=== PATIENT | female | born 1985 | race Caucasian/White ===

== ENCOUNTER 2019-08-21 18:56 | Emergency (ER) | payer OTHER ==
--- NOTE | 2019-08-21 19:11 | UC ---
Lower Extremity/Ankle HPI - HPI Summary HPI Summary: Patient is 34 year old female, who present today to the urgent care with right foot and ankle pain , starting 3 hours [employer]. She reports that she went to stand up from the couch and twisted her R ankle. Pt "heard a pop". Pt reports the lateral aspect as well as the bottom of her foot is painful. Swelling and pain on lasteral ankle and base of 5th metatarsal. She is limping - History of Current Complaint Stated Complaint: RIGHT FOOT INJURY Time Seen by Provider: 08/21/19 19:04 Hx Obtained From: Patient Hx Last Menstrual Period: Jul 29, 2019 ?: No - Allergies/Home Medications Allergies/Adverse Reactions: Allergies Allergy/AdvReac Type Severity Reaction Status Date / Time No Known Allergies Allergy Verified 08/21/19 19:08 PMH/Surg Hx/FS Hx/Imm Hx - Additional Past Medical History Additional PMH: Past Medical History : None Past Surgical History: D&C, tubal, appendectomy Family History : non contributory Social History : Occasional alcohol, daily smoker, no drug use. Previously Healthy: Yes - Surgical History Surgical History: Yes Surgery Procedure, Year, and Place: DN -2012 - Family History Known Family History: Positive: None, Non-Contributory - Social History Alcohol Use: Occasionally Substance Use Type: None Smoking Status (MU): Heavy Every Day Tobacco Smoker Review of Systems All Other Systems Reviewed And Are Negative: Yes Constitutional: Positive: Negative Skin: Positive: Negative Eyes: Positive: Negative ENT: Positive: Negative Respiratory: Positive: Negative Cardiovascular: Positive: Negative Gastrointestinal: Positive: Negative Genitourinary: Positive: Negative Motor: Positive: Negative Neurovascular: Positive: Negative Musculoskeletal: Positive: Arthralgia - Right foot and ankle pain, Edema Neurological: Positive: Negative Psychological: Positive: Negative Is Patient Immunocompromised?: No Physical Exam - Summary Physical Exam Summary: Vital Signs Reviewed: Yes A+Ox3, no distress Eyes: Conjunctiva Clear ENT: Hearing grossly normal neck: supple Respiratory: Positive: No respiratory distress, No accessory muscle use Cardiovascular: skin color reflect adequate perfusion Neurological: Positive: Alert, ambulatory without difficulty Psychological: Positive: Normal Response To Family Skin: Positive: no rash, no ecchymosis Musculoskeletal exam: Gait: antalgic gait Right Ankle/Feet examination: Ankle: Inspection/palpation: No bruising but there is swelling noted on the lateral aspect. There is tenderness to palpation on the ATFL and CFL. There is tenderness to palpation at the distal fibula and the base of 5th metatarsal. Ankle mortise appears intact. ROM: Limited and painful range of motion) Strength: 5-/5 Special tests:Anterior drawer test is negative but painful. Side to side test negative.Talar tilt test(inversion stress) and the eversion stress test negative. Negative Squeeze and External Rotation tests. Heel tap test negative. Feet: Insp/Palp: Tenderness to palpation is noted at the base of the fifth metatarsal Strength: EHL 5/5 blaterally Skin: No scars, rashes, lesions or ecchymosis. 2+ posterior tibial and dorsalis pedis pulse bilaterally. Neuro: Sensation to light touch is intact in the lower extremities bilaterally. Coordination normal. Triage Information Reviewed: Yes Vital Signs Reviewed: Yes Diagnostics - Radiology No standard instances Radiology Interpretation Completed By: ED Physician - X-ray of the right foot: Preliminary read: Mild osteophytes noted, Enthesophyte noted at the Achilles tendon. no acute fracture or dislocation identified . X-ray of the right ankle: No fracture identified Lower Extremity Course/Dx - Course Course Of Treatment: During the visit today, we obtained X-ray of the right foot: Preliminary read : Mild osteophytes noted, Enthesophyte noted at the Achilles tendon. no acute fracture or dislocation identified . X-ray of the right ankle: No fracture identified We discussed the findings- lateral ankle sprain and foot contusion . Plan for cam boot and follow with orthopedics within a week Patient expressed understanding . - Differential Dx/Diagnosis Provider Diagnosis: Right ankle sprain, Contusion of right foot Discharge ED - Sign-Out/Discharge Documenting (check all that apply): Patient Departure All imaging exams completed and their final reports reviewed: No - Discharge Plan Condition: Stable Disposition: HOME Patient Education Materials: Ankle Sprain (ED), Foot Contusion (ED) Referrals: Donna Avila PA [Primary Care Provider] - Bryce Hurd MD [Medical Doctor] - 1 Week Additional Instructions: Please start using the cam boot walker with ambulation. You cannot drive with the cam boot walker. Your x-rays were done after 6 PM and no official radiology read is available at this time . X-rays will be read tomorrow morning by radiologist and if anything different, somebody will call you with the findings and further plan. Follow up with orthopedics within a week. Gentle range of motion exercises as demonstrated today.. Ice and ibuprofen as needed for pain. Ice 15 minutes at a time, 3-4 times a day. Patients blood pressure slightly high in Urgent care today , plan follow up with PCP for better control Return to Urgent care / ER if symptoms get worse. - Billing Disposition and Condition Condition: STABLE Disposition: Home
[2019-08-21 19:14] VITALS: BP 156/86
== END 2019-08-21 20:20 | disposition home or self-care (01) ==
LOC: UCCORT 18:56
DX: S93.401A Sprain of unspecified ligament of right ankle, initial encounter (principal); S90.31XA Contusion of right foot, initial encounter; F17.290 Nicotine dependence, other tobacco product, uncomplicated; X50.1XXA Overexertion from prolonged static or awkward postures, initial encounter; Y92.9 Unspecified place or not applicable
CPT/HCPCS: 99212; G0463